=== PATIENT | male | born 1965 | race African-American/Black ===

== ENCOUNTER 2022-11-20 15:54 | Emergency (ER) | payer MEDICARE ==
[2022-11-20] MEDS ORDERED: Ondansetron PF 4 MG/2 ML Vial ONE ×2 (16:55→18:44)
[2022-11-20] MEDS ORDERED: Glucagon 1 MG/ML KIT ONE (16:56)
[2022-11-20 17:32] LABS: Anion Gap 11 mmol/L (10-20); BUN (Urea Nitrogen) 10 mg/dL (8.4-25.7); Calc. Creatinine Clearance 0 mL/min (70-130); Calcium 9.9 mg/dL (7.8-10.44); Carbon Dioxide 30 mmol/L (22-29); Chloride 106 mmol/L (98-107); Estimated GFR 86; Glucose 97 mg/dL (70-105); Potassium 3.4 mmol/L (3.5-5.1); Sodium 144 mmol/L (136-145)
[2022-11-20] MEDS ORDERED: Famotidine/PF 20 mg/2ml Vial ONE (18:01)
[2022-11-20] MEDS ORDERED: PROPOFOL 20 ML ONE ×2 (18:44→19:02)
[2022-11-20] MEDS ORDERED: Succinylcholine 200 MG/10 ml SYRINGE FS ONE (18:44)
[2022-11-20] MEDS ORDERED: fentaNYL 50 mcg/mL 1 mL Vial ONE (18:44)
[2022-11-20] MEDS ORDERED: Lidocaine 1% PF 5 ML VIAL ONE (18:44)
[2022-11-20] MEDS ORDERED: Rocuronium Bromide 10 MG/ML (10ML VIAL) ONE (18:44)
[2022-11-20] MEDS ORDERED: PHENYLEPHRINE-NS 100 MCG/ML 10 ML SYRINGE ONE (19:17)
== END 2022-11-20 19:09 | disposition admitted as inpatient to this hospital (09) ==
LOC: CSHERS 15:54
PROC: 0DC58ZZ Extirpation of Matter from Esophagus, Via Natural or Artificial Opening Endoscopic (ICD-10-PCS; principal; 2022-11-20)
DX: T18.128A Food in esophagus causing other injury, initial encounter (principal); I10 Essential (primary) hypertension; K21.9 Gastro-esophageal reflux disease without esophagitis; Z79.899 Other long term (current) drug therapy
CPT/HCPCS: 43247; 70360; 71046; 80048; 99285; J1611; J3010; 36415; J2405; J2704; S0028

== ENCOUNTER 2023-12-13 11:32 | Emergency (ER) | payer MEDICARE, OTHER ==
[2023-12-13] MEDS ORDERED: predniSONE 20 MG TAB ONE (12:20)
[2023-12-13] MEDS ORDERED: Ipratropium/Albuterol 3 ML NEB ONE (12:25)
== END 2023-12-13 13:05 | disposition home or self-care (01) ==
LOC: CSHERS 11:32
DX: J06.9 Acute upper respiratory infection, unspecified (principal); R06.2 Wheezing
CPT/HCPCS: 99284; J7512; J7620